=== PATIENT | female | born 1935 | race Caucasian/White ===

== ENCOUNTER 2021-11-20 16:29 | Outpatient (CLI) | payer OTHER, SELFPAY ==
[2021-11-20 22:02] LABS: Aspartate Amino Transferase* 34 U/L (12-35); Cholesterol* 173 mg/dL (90-199); HDL Cholesterol* 55 mg/dL (>=50); LDL Cholesterol Calculated 94 mg/dL (<100); Triglycerides* 121 mg/dL (40-149)
== END 2021-11-20 16:30 | disposition home or self-care (01) ==
LOC: LKVREF 16:30
PROVIDERS: PCP Emergency Medicine; Visit Provider Emergency Medicine
DX: E78.5 Hyperlipidemia, unspecified (principal); F41.9 Anxiety disorder, unspecified; F41.3 Other mixed anxiety disorders
CPT/HCPCS: 80061; 84450

== ENCOUNTER 2021-12-12 15:08 | Outpatient (CLI) | payer MEDICARE, BC, SELFPAY ==
--- NOTE | 2021-12-12 15:30 | CRLHL7_ITS ---
For Patients: As a result of the Century Cures Act, medical imaging exams and procedure reports are released immediately into your electronic medical record. You may view this report before your referring provider. If you have questions, please contact your health care provider. Indication: Memory loss. Technique: Multiplanar, multisequence MRI of the brain was performed without intravenous contrast. Comparison: None relevant available. Findings: Moderate thinning of the corpus callosum. The pituitary gland and clivus appear intact. Moderate degenerative change visualized upper cervical spine. There is no restricted diffusion. No intracranial hemorrhage. The ventricles are proportionate to the cerebral sulci. The 4th ventricle appears midline. The basal cisterns appear patent. No abnormal extra-axial fluid collection identified. Moderate parenchymal volume loss. Moderate T2 FLAIR hyperintense foci within the subcortical and periventricular white matter, favored to represent chronic ischemic microvascular disease. There is no intracranial mass, abnormal mass-effect or midline shift identified. Major intracranial vascular flow voids appear grossly intact. Moderate paranasal sinus mucosal disease. Bilateral maxillary sinus air-fluid levels. Small left and trace right mastoid effusions. Impression: 1. No acute/subacute infarct. 2. Moderate chronic ischemic microvascular disease and parenchymal volume loss. 3. Moderate paranasal sinus mucosal disease with maxillary sinus air-fluid levels. Correlate for acute sinusitis. Dictated by Hugo Townsend MD @ 12/12/2021 4:20:22 PM (Electronically Signed)
== END 2021-12-12 15:09 | disposition home or self-care (01) ==
PROVIDERS: PCP Emergency Medicine; Visit Provider Emergency Medicine
DX: R41.3 Other amnesia (principal); I67.82 Cerebral ischemia; J32.0 Chronic maxillary sinusitis
CPT/HCPCS: 70551

== ENCOUNTER 2021-12-23 18:10 | Outpatient (CLI) | payer MEDICARE, SELFPAY ==
[2021-12-23 21:30] LABS: Chloride* 100 mmol/L (96-114)
[2021-12-23 21:31] LABS: Potassium* 4.2 mmol/L (3.6-5.1); Sodium* 138 mmol/L (135-149)
[2021-12-23 21:33] LABS: Carbon Dioxide* 29 mmol/L (20-32); Cholesterol* 170 mg/dL (90-199); Creatinine* 1.1 mg/dL (0.5-1.5); Estimated Glomerular Filt Rate 49 ml/min
[2021-12-23 21:34] LABS: Blood Urea Nitrogen* 29 mg/dL (7-30); Calcium* 9.4 mg/dL (8.4-10.6); Glucose* 77 mg/dL (60-115); HDL Cholesterol* 57 mg/dL (>=50); LDL Cholesterol Calculated 80 mg/dL (<100); Triglycerides* 166 mg/dL (40-149)
== END 2021-12-23 18:11 | disposition home or self-care (01) ==
PROVIDERS: PCP Emergency Medicine; Visit Provider Emergency Medicine
DX: I10 Essential (primary) hypertension (principal); E78.5 Hyperlipidemia, unspecified
CPT/HCPCS: 80048; 80061

== ENCOUNTER 2022-08-24 14:39 | Outpatient (CLI) | payer MEDICARE, SELFPAY | END 2022-08-24 14:40 | disposition home or self-care (01) | PROVIDERS: PCP Emergency Medicine; Visit Provider Internal Medicine | DX: R01.1 Cardiac murmur, unspecified (principal); Z86.79 Personal history of other diseases of the circulatory system | CPT/HCPCS: 93306 ==

== ENCOUNTER 2023-01-28 08:33 | Outpatient (CLI) | payer MEDICARE, BC, SELFPAY | END 2023-01-28 08:34 | disposition home or self-care (01) | LOC: NFLDREF 01-29 12:16 | PROVIDERS: PCP Internal Medicine; Referring Provider Internal Medicine; Visit Provider Internal Medicine | DX: Z00.00 Encounter for general adult medical examination without abnormal findings (principal); M10.9 Gout, unspecified; E78.5 Hyperlipidemia, unspecified; I10 Essential (primary) hypertension | CPT/HCPCS: 80053; 80061; 84550 ==

== ENCOUNTER 2023-03-09 08:19 | Emergency (ER) | payer MEDICARE, BC, SELFPAY ==
[2023-03-09 08:21] VITALS: BP 174/56; PULSE 63; RESP 18; TEMP 36.4; O2SAT 96; BMI 27.4
[2023-03-09 08:35] VITALS: BP 167/76; PULSE 67; RESP 18; TEMP 36.1; O2SAT 97
--- NOTE | 2023-03-09 08:40 | CRLHL7_ITS ---
For Patients: As a result of the Cures Act, medical imaging exams and procedure reports are released immediately into your electronic medical record. You may view this report before your referring provider. If you have questions, please contact your health care provider. INDICATION: Short of breath COMPARISON: 11/1921 TECHNIQUE: PA and lateral 2 view chest radiograph. FINDINGS: The lungs are well expanded. New small reticular opacities in the right lower lobe and lingula. No pulmonary edema. No pleural effusion. No pneumothorax. No pneumomediastinum. Normal cardiomediastinal silhouette. Bones: Normal for age. IMPRESSION: Small opacities in the right lower lobe and lingula could be infectious. Dictated by Samia Adams MD @ 03/09/2023 9:54:39 AM (Electronically Signed)
--- NOTE | 2023-03-09 08:40 | PC.NURSE ---
Pt. denies feeling dizzy currently, does state she is feeling flutters in center of her chest. This is what woke her at 0500 along with shortness of breath gasping for air. Physician in room at end of triage, at bedside with pt. and pt's daughter in law.
[2023-03-09 08:56] LABS: Lactate* 0.8 mmol/L (0.5-1.9)
[2023-03-09 08:58] LABS: Basophils Absolute Auto 0.02 K/uL (0.00-0.30); Basophils Percent Auto 0.4 % (0.0-3.0); Eosinophils Percent Auto 1.8 % (0.0-7.0); Hemoglobin* 11.9 gm/dL (12.0-16.0); Lymphocytes Absolute Auto 1.17 K/uL (0.90-2.90); Lymphocytes Percent Auto 21.2 % (20-44); Mean Corpuscular HGB Conc 33 gm/dL (32-36); Mean Corpuscular Hemoglobin 29 pg (26-34); Mean Corpuscular Volume 89 fL (80-100); Monocytes Percent Auto 4.5 % (0.0-11.0); Neutrophils Percent Auto 72.1 % (42.0-72.0); Platelet Count* 213 K/uL (140-440); Red Blood Count 4.06 m/uL (4.00-5.20); White Blood Count* 5.53 K/uL (4.50-11.00)
[2023-03-09 09:10] LABS: Slide Review Reflex No
[2023-03-09 09:13] LABS: Chloride* 107 mmol/L (96-114); Potassium* 4.2 mmol/L (3.6-5.1); Sodium* 139 mmol/L (135-149)
[2023-03-09 09:15] LABS: Creatinine* 1.2 mg/dL (0.5-1.5); Est. Creatinine Clearance* 25.63; Estimated Glomerular Filt Rate 44 ml/min
[2023-03-09 09:16] LABS: Anion Gap 5 mEq/L (7-15); Blood Urea Nitrogen* 24 mg/dL (7-30); Calcium* 9.3 mg/dL (8.4-10.6); Carbon Dioxide* 27 mmol/L (20-32); Glucose* 122 mg/dL (60-115); Magnesium* 1.9 mg/dL (1.5-2.6)
[2023-03-09 09:30] LABS: Troponin I* < 0.01 ng/mL (0.01-0.04)
--- NOTE | 2023-03-09 09:31 | ED_ITS ---
HPI - General Adult General Chief complaint: Arrhythmia/Palpitations Stated complaint: Dizzy Time Seen by Provider: 03/09/23 08:28 Source: patient and EMS Limitations: no limitations History of Present Illness HPI narrative: 87-year-old female, who lives with her son and [id number], presents today after an episode of shortness of breath and dizziness. Patient states that she woke up this morning had to use the bathroom and as soon she open her eyes the room started spinning. She felt like she could not breathe. She tells me that the episode of dizziness lasted about 2 minutes. However she felt short of breath for an uncertain amount of time. She states that the shortness of breath did pass even prior to getting into the ambulance. She currently tells me that she feels fine. She also tells me that she every now and then she feels her heart skip a beat but that it does not cause any chest pain. She thinks that she slept well last night. She states that this morning despite the dizziness and shortness of breath she was able to get herself up and go to the bathroom. She has not fallen or hit her head. She denies any recent illness. She states that she has a chronic runny nose which is not new. She denies coughing. Again no chest pain. She denies any recent diarrhea. States that her appetite has been unchanged. Per her daughter in-law she has a small appetite but that this is not new. No changes in mentation and no focal neurologic deficits. She has recently had her antidepressant dosage increased, no new medications. Past medical history is significant for non ST elevation [place], gout, hypertension, hyperlipidemia, sarcoidosis, sleep apnea with CPAP, depression, memory loss, GERD, hearing loss, COPD, anxiety, history of vasovagal syncope, history of vertigo. Related Data Home Medications Medication Instructions Recorded Confirmed Tonic water PO 11/20/21 03/02/23 albuterol sulfate 90 mcg/actuation 2 inhalation PRN 11/20/21 03/02/23 aerosol inhaler amoxicillin 500 mg capsule 2,000 mg PO ONCE 11/20/21 03/02/23 aspirin 81 mg tablet,delayed 81 mg PO 11/20/21 03/02/23 release cyanocobalamin (vitamin B-12) 1,000 mcg IM DAILY 11/20/21 03/02/23 1,000 mcg/mL injection solution elderberry fruit 50 mg/5 mL oral mg PO 11/20/21 03/02/23 syrup Black Elderberry PO 07/24/22 03/02/23 ascorbic acid (vitamin C) 500 mg mg PO 07/24/22 03/02/23 capsule cholecalciferol (vitamin D3) 50 50 mcg PO QDAY 07/24/22 03/02/23 mcg (2,000 unit) capsule elderberry fruit 350 mg capsule mg PO 07/24/22 03/02/23 levalbuterol HCl 1.25 mg/3 mL 1.25 mg inhalation Q4H 11/17/22 03/02/23 solution for nebulization Previous Rx's Medication Instructions Recorded albuterol sulfate 2.5 mg/3 mL 2.5 mg (3 mL) inhalation Q4-6H PRN 12/23/21 (0.083 %) solution for nebulization shortness of breath or wheezing #75 mL epinephrine 0.3 mg/0.3 mL 0.3 ml IM .As Needed PRN 12/15/22 injection, auto-injector anaphylaxis #2 ea epinephrine 0.3 mg/0.3 mL 0.3 mg (0.3 mL) IM .PRN PRN 12/16/22 injection, auto-injector anaphylaxis #2 ea atorvastatin 40 mg tablet 40 mg PO QDAY #90 tabs 01/05/23 allopurinol 100 mg tablet 100 mg PO QDAY #90 tabs 01/25/23 fluticasone propionate 110 2 puff inhalation DAILY #12 grams 02/03/23 mcg/actuation HFA aerosol inhaler (Flovent HFA) amlodipine 5 mg tablet 5 mg PO DAILY #90 tabs 03/01/23 pantoprazole 40 mg tablet,delayed 40 mg PO QDAY #90 tabs 03/01/23 release fluoxetine 20 mg capsule 20 mg PO QDAY #30 caps 03/02/23 Allergies Allergy/AdvReac Type Severity Reaction Status Date / Time Diphtheria Toxoid-containing Allergy Unknown Uncoded 03/02/23 16:03 Vaccin Pertussis Toxoid Allergy Unknown Uncoded 03/02/23 16:03 Tetanus toxoid Allergy Unknown Uncoded 03/02/23 16:03 Review of Systems Status of ROS: Reports: 10 or more systems reviewed and unremarkable except as noted in History and below [facility] Medical History Allergy ?T78.40XA - Allergy, unspecified, initial encounter (ICD-10) Encounter for medication review ?Z79.899 - Other skilled nursing (current) drug therapy (ICD-10) Cerumen impaction ?H61.20 - Impacted cerumen, unspecified ear (ICD-10) Systolic murmur ?R01.1 - Cardiac murmur, unspecified (ICD-10) COPD exacerbation ?J44.1 - Chronic obstructive pulmonary disease with (acute) exacerbation (ICD-10) Cough ?R05.9 - Cough, unspecified (ICD-10) Major depressive disorder ?F32.9 - Major depressive disorder, single episode, unspecified (ICD-10) Memory loss ?R41.3 - Other amnesia (ICD-10) Family History Sister Breast cancer Father Heart disease, Onset Age: 40 Family/Other Heart disease, Onset Age: 60 Brother Type 2 diabetes mellitus Social History Narrative: kaye leong has 4 children no history of alcohol use non-smoker - 2005. S.O in 2019 per [place] [facility] What is your current living situation?: I presently have a place to live Problems where you live: mold In the past 12 months, utilities in danger of being shut off: no In past 12 months, lack of transportation kept you from medical appts, meetings, work, or getting things needed for daily living: no In the past 12 mos, have been you worried that your food would run out before you had money to buy more?: never true In the past 12 mos, the food you bought just didn't last and you didn't have money to buy more?: never true Smoking Status: Never smoker Do you use any of these nicotine containing products: None Second hand tobacco smoke exposure: No How often do you have a drink containing alcohol: never AUDIT-C Alcohol total score: 0 Non-prescribed substance use: denies use How often does anyone, including family, friends and others, physically hurt you : never How often does anyone, including family, friends and others, insult or talk down to you: never How often does anyone, including family, friends and others, threaten you with harm: never How often does anyone, including family, friends and others, scream or curse at you: never Little interest or pleasure in doing things: not at all Feeling down, depressed, or hopeless: not at all service: No Exam Narrative: Exam Narrative: Elderly patient in no acute distress. Alert and oriented x3. Answers questions appropriately. Mood and affect are appropriate. Thoughts are goal oriented and rational. No tangential or magical thinking noted. Patient speaks in full sentences without needing to catch her breath. Speech is not slurred or pressured. HEENT: Normal facial symmetry. Head is Normocephalic, atraumatic. Pupils are equally round reactive to light. Extraocular muscles are intact. Conjunctivae are moist without any icterus noted. Moist mucous membranes. Posterior pharynx is normal. Neck is supple. Cardiovascular: Heart is regular rate and rhythm S1 and S2 are present with a soft 1/6 systolic murmur. Lungs: Clear to auscultation bilaterally no wheezes rhonchi or rales are appreciated. Patient takes deep breaths without any discomfort. Abdomen: Soft and nontender nondistended with normal bowel sounds. No guarding or rebound. Extremities: Bilateral lower extremities are without edema. Normal DP and PT pulses. Skin: Well perfused without any obvious rashes. Strength is 5/5 of the upper and lower extremities. Reflexes are 2+ and symmetric at the knees. Cranial nerves 3-12 are normal. [id number] is normal. There is no nystagmus either horizontally or vertically. Const: Vital Signs, click to edit/add: Vital Signs - 24 hr 03/09/23 08:21 03/09/23 08:35 03/09/23 08:35 Temperature 97.6 F 97.0 F L Pulse Rate [Pulse Oximeter] 63 67 Respiratory Rate 18 18 Blood Pressure [Le ft Upper Arm] 174/56 H 167/76 H Pulse Oximetry 96 97 97 Oxygen Delivery Me thod Room Air Room Air 03/09/23 09:41 03/09/23 09:42 Temperature 97.5 F L Pulse Rate [Pulse Oximeter] 82 Respiratory Rate 20 Blood Pressure [Le ft Upper Arm] 205/87 H Pulse Oximetry 97 97 Oxygen Delivery Me thod Room Air Course Course ED Course: EKG, read by me, shows normal sinus rhythm with PVCs, left axis deviation, pulse of 70. Patient requested [employer] to use the bathroom. When she got up to use the bathroom she became acutely dizzy again with the room spinning and she complained that she could not breathe. Her oxygen saturation remained within normal limits during this time and approximately 2 minutes later the episode stopped. During the episode patient was very tearful. She denied feeling nauseated and there was no vomiting. The shortness of breath that she was feeling resolved when the dizziness past and she was no longer tearful. CBC and chemistries were unremarkable. Normal troponin. Repeat troponin unchanged. Repeat EKG unchanged. Triple swab was negative. UA: Showed 3+ protein. Normal lactate and magnesium. Patient received a dose of meclizine while she was here and she had no more episodes of dizziness. She was sitting up, conversing without any difficulty. She was able to take a nap. Her chest x-ray was read as small opacities in the right lower lobe and lingula that could be infectious. Given the fact that she has a normal CRP and CBC and that she is not coughing, I do not believe these opacities to be infectious at this time. These could be due to her sarcoidosis. And again, she is only short of breath when she is acutely dizzy - the shortness of breath resolves shortly after the dizziness resolves. Vital Signs Vital signs: Initial Vital Signs Temperature 97.6 F 03/09/23 08:21 Temperature Source Temporal Artery Scan 03/09/23 08:21 Pulse Rate 63 03/09/23 08:21 Pulse Rhythm Regular 03/09/23 08:21 Respiratory Rate 18 03/09/23 08:21 Blood Pressure 174/56 H 03/09/23 08:21 Blood Pressure Mean 95 03/09/23 08:21 Blood Pressure Position Supine 03/09/23 08:21 Pulse Oximetry 96 03/09/23 08:21 Oxygen Delivery Method Room Air 03/09/23 08:21 Vital Signs Temperature 97.6 F 03/09/23 08:21 Pulse Rate 63 03/09/23 08:21 Respiratory Rate 18 03/09/23 08:21 Blood Pressure 174/56 H 03/09/23 08:21 Pulse Oximetry 96 03/09/23 08:21 Oxygen Delivery Method Room Air 03/09/23 08:21 Temperature 97.5 F L 03/09/23 09:42 Pulse Rate 82 03/09/23 09:42 Respiratory Rate 20 03/09/23 09:42 Blood Pressure 205/87 H 03/09/23 09:42 Pulse Oximetry 97 03/09/23 09:42 Oxygen Delivery Method Room Air 03/09/23 09:42 Medications Administered Medications: Discontinued Medications Generic Name Dose Route Start Last Admin Trade Name Douglas PRN Reason Stop Dose Admin Meclizine HCl 25 mg 03/09/23 09:37 03/09/23 09:50 Meclizine Hcl 25 Mg Tablet PO 03/09/23 09:38 25 mg ONCE ONE Administration Medical Decision Making MDM Narrative Medical decision making narrative: 87-year-old female with vertigo and PVCs. During the episode she had here in appear that she became very anxious during the episode and complain of being short of breath. I do not think that her shortness of breath symptoms are due to heart or lung pathology. At this time patient will be discharged home to the care of her [id number]. She will be discharged home with meclizine and instructions to move slowly, stay well hydrated. Medical Records Medical records reviewed: Yes I reviewed the patient's medical records Lab Data Lab results reviewed: Yes I reviewed the patient's lab results Labs: Lab Results 03/09/23 03/09/23 03/09/23 Range/Units 08:35 08:40 08:50 WBC 5.53 (4.50-11.00) K/uL RBC 4.06 (4.00-5.20) m/uL Hgb 11.9 L (12.0-16.0) gm/dL Hct 36.0 (33.0-51.0) % MCV 89 (80-100) fL MCH 29 (26-34) pg MCHC 33 (32-36) gm/dL RDW Coeff of Katty 13.0 (11.5-15.5) % Plt Count 213 (140-440) K/uL Neut % (Auto) 72.1 H (42.0-72.0) % Lymph % (Auto) 21.2 (20-44) % Hardeman % (Auto) 4.5 (0.0-11.0) % Eos % (Auto) 1.8 (0.0-7.0) % Baso % (Auto) 0.4 (0.0-3.0) % Neut # (Auto) 4.00 (1.7-7.0) K/uL Lymph # (Auto) 1.17 (0.90-2.90) K/uL Hardeman # (Auto) 0.20 (0.00-0.90) K/UL Eos # (Auto) 0.10 (0.00-0.50) K/uL Baso # (Auto) 0.02 (0.00-0.30) K/uL Abs Immat Gran (auto) 0.00 (0.00-0.30) K/uL Imm/Tot Granulo (auto) 0.0 % Sodium 139 (135-149) mmol/L Potassium 4.2 (3.6-5.1) mmol/L Chloride 107 (96-114) mmol/L Carbon Dioxide 27 (20-32) mmol/L Anion Gap 5 L (7-15) mEq/L BUN 24 (7-30) mg/dL Creatinine 1.2 (0.5-1.5) mg/dL Estimated Creat Clear 25.63 Estimated GFR 44 ml/min Glucose 122 H (60-115) mg/dL Lactate 0.8 (0.5-1.9) mmol/L Calcium 9.3 (8.4-10.6) mg/dL Magnesium 1.9 (1.5-2.6) mg/dL Troponin I < 0.01 L (0.01-0.04) ng/mL Urine Color (Yellow) Urine Appearance (Clear) Urine pH (5.0-8.5) Ur Specific [place] (1.000-1.030) Urine Protein (Negative) Urine Glucose (UA) (Negative) Urine Ketones (Negative) Urine Blood (Negative) Urine Nitrite (Negative) Urine Bilirubin (Negative) Urine Urobilinogen (0.2-1.0) Ur Leukocyte Esterase (Negative) Urine RBC (0-2) Urine WBC (0-5) Ur Squamous Epith Cells (None-Few) Urine Bacteria (None) SARS-CoV-2 (PCR) Negative SARS-CoV-2 (Negative) Influenza Type A (PCR) Negative PCR FLU A (Negative) Influenza Type B (PCR) Negative PCR FLU B (Negative) RSV (PCR) Negative PCR RSV (Negative) POC Troponin I 0.00 L (0.01-0.04) ng/ml 03/09/23 03/09/23 Range/Units 09:40 10:35 WBC (4.50-11.00) K/uL RBC (4.00-5.20) m/uL Hgb (12.0-16.0) gm/dL Hct (33.0-51.0) % MCV (80-100) fL MCH (26-34) pg MCHC (32-36) gm/dL RDW Coeff of Katty (11.5-15.5) % Plt Count (140-440) K/uL Neut % (Auto) (42.0-72.0) % Lymph % (Auto) (20-44) % Hardeman % (Auto) (0.0-11.0) % Eos % (Auto) (0.0-7.0) % Baso % (Auto) (0.0-3.0) % Neut # (Auto) (1.7-7.0) K/uL Lymph # (Auto) (0.90-2.90) K/uL Hardeman # (Auto) (0.00-0.90) K/UL Eos # (Auto) (0.00-0.50) K/uL Baso # (Auto) (0.00-0.30) K/uL Abs Immat Gran (auto) (0.00-0.30) K/uL Imm/Tot Granulo (auto) % Sodium (135-149) mmol/L Potassium (3.6-5.1) mmol/L Chloride (96-114) mmol/L Carbon Dioxide (20-32) mmol/L Anion Gap (7-15) mEq/L BUN (7-30) mg/dL Creatinine (0.5-1.5) mg/dL Estimated Creat Clear Estimated GFR ml/min Glucose (60-115) mg/dL Lactate (0.5-1.9) mmol/L Calcium (8.4-10.6) mg/dL Magnesium (1.5-2.6) mg/dL Troponin I (0.01-0.04) ng/mL Urine Color Yellow (Yellow) Urine Appearance Clear (Clear) Urine pH 7.0 (5.0-8.5) Ur Specific [place] 1.020 (1.000-1.030) Urine Protein 3+ A (Negative) Urine Glucose (UA) Negative (Negative) Urine Ketones Negative (Negative) Urine Blood Trace-lysed A (Negative) Urine Nitrite Negative (Negative) Urine Bilirubin Negative (Negative) Urine Urobilinogen 0.2 (0.2-1.0) Ur Leukocyte Esterase Negative (Negative) Urine RBC 0-2 (0-2) Urine WBC 0-2 (0-5) Ur Squamous Epith Cells Few (None-Few) Urine Bacteria None (None) SARS-CoV-2 (PCR) (Negative) Influenza Type A (PCR) (Negative) Influenza Type B (PCR) (Negative) RSV (PCR) (Negative) POC Troponin I 0.00 L (0.01-0.04) ng/ml Imaging Data Chest x-ray: Attestation: I have reviewed the pertinent imaging results. Radiologist's impression: PA and lateral 2 view chest radiograph. FINDINGS: The lungs are well expanded. New small reticular opacities in the right lower lobe and lingula. No pulmonary edema. No pleural effusion. No pneumothorax. No pneumomediastinum. Normal cardiomediastinal silhouette. Bones: Normal for age. IMPRESSION: Small opacities in the right lower lobe and lingula could be infectious. ECG Data Attestation: I personally reviewed and interpreted this ECG as follows: Discharge Plan Discharge Clinical Impression: PVC's (premature ventricular contractions), Vertigo Patient Disposition: Home w/ Parent or Adult Condition: Stable Additional Instructions: Rest, stay well hydrated and move slowly throughout the day. Follow-up with your primary care provider in the next week. Prescriptions: No Action aspirin 81 mg tablet,delayed release (DR/EC) 81 mg PO albuterol sulfate 90 mcg/actuation HFA aerosol inhaler 2 inhalation PRN cyanocobalamin (vitamin B-12) 1,000 mcg/mL solution 1,000 mcg IM DAILY Tonic water PO elderberry fruit 50 mg/5 mL syrup PO amoxicillin 500 mg capsule 2,000 mg PO ONCE Rx Instructions: prior to a dental procedure albuterol sulfate 2.5 mg /3 mL (0.083 %) solution for nebulization 2.5 mg inhalation Q4-6H PRN (Reason: shortness of breath or wheezing) Qty: 75 3RF levalbuterol HCl 1.25 mg/3 mL solution for nebulization 1.25 mg inhalation Q4H fluticasone propionate [Flovent HFA] 110 mcg/actuation HFA aerosol inhaler 2 puff inhalation DAILY Qty: 12 3RF fluoxetine 20 mg capsule 20 mg PO QDAY Qty: 30 3RF cholecalciferol (vitamin D3) 50 mcg (2,000 unit) capsule 50 mcg PO QDAY ascorbic acid (vitamin C) 500 mg capsule PO elderberry fruit 350 mg capsule PO Black Elderberry PO epinephrine 0.3 mg/0.3 mL auto-injector 0.3 ml IM .As Needed PRN (Reason: anaphylaxis) Qty: 2 1RF epinephrine 0.3 mg/0.3 mL auto-injector 0.3 mg IM .PRN PRN (Reason: anaphylaxis) Qty: 2 1RF Rx Instructions: as a single dose; may repeat once atorvastatin 40 mg tablet 40 mg PO QDAY Qty: 90 0RF allopurinol 100 mg tablet 100 mg PO QDAY Qty: 90 0RF pantoprazole 40 mg tablet,delayed release (DR/EC) 40 mg PO QDAY Qty: 90 0RF amlodipine 5 mg tablet 5 mg PO DAILY Qty: 90 3RF Follow Up/Referrals: Filiberto Ladd MD [Primary Care Provider] - Stand Alone Forms: [facility] Info Instructions
[2023-03-09 09:35] LABS: PCR FLU A Negative PCR FLU A (Negative); PCR FLU B Negative PCR FLU B (Negative); PCR RSV Negative PCR RSV (Negative); SARS PCR* Negative SARS-CoV-2 (Negative)
[2023-03-09 09:41] VITALS: O2SAT 97
[2023-03-09 09:42] VITALS: BP 205/87; PULSE 82; RESP 20; TEMP 36.4; O2SAT 97
--- NOTE | 2023-03-09 09:43 | PC.NURSE ---
Pt. up to commode, c/o feeling lightheaded and short of breath. denies chest discomfort but states feel flutters. Physician in room. See MAR.
[2023-03-09 09:44] LABS: Appearance Urine Clear (Clear); Bilirubin Urine Negative (Negative); Blood Urine Trace-lysed (Negative); Color Urine Yellow (Yellow); Glucose Urine Negative (Negative); Ketones Urine Negative (Negative); Leukocyte Esterase Urine Negative (Negative); Nitrite Urine Negative (Negative); Protein Urine 3+ (Negative); Urobilinogen Urine 0.2 (0.2-1.0)
[2023-03-09] MEDS: MECLIZINE HCL 25 MG TABLET PO (09:50)
--- NOTE | 2023-03-09 09:51 | PC.NURSE ---
Pt back from radiology, states she is feeling better sitting straight up. States with the most recent episode getting up to commode she felt dizzy but explained more as a pressure across her forehead, and states she felt very shakey and couldn't control it. Meclizine given. Daughter in law at bedside.
[2023-03-09 09:56] LABS: RBC Urine 0-2 (0-2); Squamous Epithelial Cell Urine Few (None-Few); WBC Urine 0-2 (0-5)
--- NOTE | 2023-03-09 11:11 | PC.NURSE ---
Pt. has been asleep since returning from radiology. Awakened for repeat EKG and lab draw. Pt. states she isn't having any shortness of breath, dizziness, or feeling fluttering in her chest. Sister in law at bedside. Warm blanket given.
[2023-03-09 11:38] VITALS: BP 168/78; PULSE 75; RESP 18; TEMP 36.7; O2SAT 97
== END 2023-03-09 11:39 | disposition home or self-care (01) ==
PROVIDERS: Emergency Provider Family Medicine; PCP Internal Medicine
DX: I49.3 Ventricular premature depolarization (principal); R42 Dizziness and giddiness; R82.90 Unspecified abnormal findings in urine
CPT/HCPCS: 36415; 71046; 80048; 81001; 83605; 83735; 84484; 85025; 87086; 87631; 93005; 94761; 99284; 99285; A9270

== ENCOUNTER 2023-07-30 15:14 | Outpatient (CLI) | payer MEDICARE, BC, SELFPAY ==
--- NOTE | 2023-07-30 16:00 | CRLHL7_ITS ---
For Patients: As a result of the Century Cures Act, medical imaging exams and procedure reports are released immediately into your electronic medical record. You may view this report before your referring provider. If you have questions, please contact your health care provider. INDICATION: Solitary pulmonary nodule. COMPARISON: None. TECHNIQUE: CT chest without intravenous contrast; coronal and sagittal reformats. FINDINGS: Coronary artery calcifications. No abnormal mediastinal or hilar lymphadenopathy. Normal-sized cardiac silhouette without pericardial effusion. Limited CT through the upper abdomen reveals cholelithiasis. Nodular infiltrate right lower lobe of left lung. A 0.9 cm mixed attenuation ground-glass opacity upper lobe left lung. A 5 mm noncalcified nodule right lung apex slice 17 series 3. IMPRESSION: 1. Nodular infiltrate lower lobe left lung and noncalcified nodules left lung apex and right lung apex measuring 0.9 cm on the left and 0.5 cm on the right; suggest obtaining a shot interval follow-up chest CT in 3 months. 2. Coronary artery calcifications. Please note that all CT scans at this facility use dose modulation, iterative reconstruction, and/or weight-based dosing when appropriate to reduce radiation dose to as low as reasonably achievable. Dictated by Cely Clifton MD @ 08/02/2023 3:07:53 PM (Electronically Signed)
== END 2023-07-30 15:15 | disposition home or self-care (01) ==
LOC: CT 15:15
PROVIDERS: PCP Internal Medicine; Visit Provider Internal Medicine
DX: R91.1 Solitary pulmonary nodule (principal); I25.10 Atherosclerotic heart disease of native coronary artery without angina pectoris
CPT/HCPCS: 71250

== ENCOUNTER 2023-09-21 08:30 | Outpatient (CLI) | payer MEDICARE, BC, SELFPAY | END 2023-09-21 08:31 | disposition home or self-care (01) | LOC: NFLDREF 09-22 11:34 | PROVIDERS: PCP Internal Medicine; Referring Provider Internal Medicine; Visit Provider Internal Medicine | DX: E78.5 Hyperlipidemia, unspecified (principal); I10 Essential (primary) hypertension | CPT/HCPCS: 80053; 80061 ==